=== PATIENT | female | born 1965 | race Caucasian/White ===

== ENCOUNTER 2021-07-21 05:34 | Outpatient (CLI) | payer OTHER ==
[~2021-07-21] VITALS: Ht 147.3 cm; Wt 117.0 kg
[2021-07-24] MEDS ORDERED: MELO15TA14 PO (08:57)
[2021-07-24] MEDS ORDERED: LEVO112C4 PO (08:57)
[2021-07-24] MEDS ORDERED: NALT1TAB PO (08:57)
[2021-07-24] MEDS ORDERED: MULT-1136 PO (08:57)
[2021-07-24] MEDS ORDERED: HYDR25TA4 PO (08:57)
== END 2021-07-24 09:09 | disposition home or self-care (01) ==
LOC: PREOP 05:34
PROVIDERS: ATTEND Orthopaedic Surgery
DX: Z01.818 Encounter for other preprocedural examination (principal)

== ENCOUNTER 2021-07-28 06:56 | Day surgery (SDC) | payer OTHER, BC ==
--- NOTE | 2021-07-21 07:22 | HISTORY AND PHYSICAL ---
DATE OF SERVICE: ADMISSION HISTORY AND PHYSICAL This will be for outpatient surgery on 07/28/2021 for right shoulder arthroscopy. HISTORY: The patient is a 55-year-old right hand dominant female who injured her right shoulder at work and since then has been having pain and activity limitations. She has undergone treatment with activity modifications without relief. An MRI revealed a SLAP tear. Due to functional impairment and failure to improve with conservative measures, the patient has elected to proceed with right shoulder arthroscopy with biceps tenotomy. REVIEW OF SYSTEMS: No chest pain, no shortness of breath, no dysuria. PAST MEDICAL HISTORY: Hypothyroidism, rheumatoid arthritis, renal insufficiency. PAST SURGICAL HISTORY: Tubal ligation, ear tubes, cleft palate. FAMILY HISTORY: Significant for diabetes and heart disease. PRIMARY CARE PROVIDER: [facility]. MEDICATIONS: Contrave, steroid nasal spray, hydrochlorothiazide, Mobic and levothyroxine. ALLERGIES: No known allergies. SOCIAL HISTORY: The patient is a former smoker. Denies alcohol use. PHYSICAL EXAMINATION: GENERAL: The patient is well developed, well nourished, in no acute distress. HEENT: Normocephalic, atraumatic. Pupils are equal, round and reactive to light. Oropharynx is clear. NECK: Supple, with no lymphadenopathy. LUNGS: Clear to auscultation bilaterally. HEART: Regular rate and rhythm. ABDOMEN: Soft, nontender, nondistended. EXTREMITIES: Right shoulder demonstrates positive Neer's and positive Delgado sign. She has slight weakness with abduction and external rotation with a positive Reydon's maneuver and a positive apprehension relieved with relocation. Active forward elevation is 150 degrees, passive is 170, external rotation 70 degrees and internal rotation is to her beltline. IMPRESSION: Right shoulder SLAP tear. PLAN: Right shoulder arthroscopy with biceps tenotomy, labral debridement. The risks, benefits, options, ramifications and recovery have been discussed at length with the patient. She understands and wishes to proceed. Job ID: [id number] DocumentID: [id number] Dictated Date: 07/12/2021 11:13:35 Branch Service Leader Date: 07/12/2021 12:25:37 Dictated By: IVONE GABRIEL MD
[2021-07-28] VITALS (9 sets, daily range): BP systolic 124–160; BP diastolic 68–88
[~2021-07-28] VITALS: Ht 147 cm; Wt 117.0 kg
[~2021-07-28 06:56] MED LIST: HYDR25TA4 PO; LEVO112C4 PO; MELO15TA14 PO; MULT-1136 PO; NALT1TAB PO
[2021-07-28] MEDS ORDERED: ceFAZolin INJECTION 1,000 MG VIAL IV ONE (07:15)
[2021-07-28] MEDS ORDERED: HYDROcodone/APAP 7.5 MG/325 MG (LORTAB, LORCET PLUS) TABLET PO PRN (07:15)
--- NOTE | 2021-07-28 07:34 | Progress Note-Pre Operative ---
Pre-Operative Progress Note H&P Reviewed The H&P was reviewed, patient examined and no changes noted. Date Seen by Provider: Jul 28, 2021 Time Seen by Provider: 07:20 Date H&P Reviewed: Jul 28, 2021 Time H&P Reviewed: 07:11 Pre-Operative Diagnosis: right SLAP tear IVONE GABRIEL MD Jul 28, 2021 07:34
--- NOTE | 2021-07-28 07:35 | Progress Note-Post Operative ---
Post-Operative Progess Note Surgeon (s)/Steno Typist (s) Surgeon IVONE GABRIEL MD Steno Typist: Kennedy Hurtado Pre-Operative Diagnosis right SLAP tear Post-Operative Diagnosis right SLAP tear Procedure & Operative Findings Date of Procedure 07/28/21 Procedure Performed/Findings right shoulder arthroscopic biceps tenotomy and labral debridement Anesthesia Type GETA Estimated Blood Loss Estimated blood loss (mL): minimal Specimens/Packing Specimens Removed none Packing: none IVONE GABRIEL MD Jul 28, 2021 07:35
[2021-07-28] MEDS ORDERED: morphine PF (DURAMORPH) 10 MG/10 ML AMP ONE (07:58)
[2021-07-28] MEDS ORDERED: BUPIVACAINE 0.25% 30 ML (SENSORCAINE) VIAL ONE (07:58)
[2021-07-28] MEDS ORDERED: proPOfol 200 MG/20 ML (DIPRIVAN) VIAL IV ONE (07:59)
[2021-07-28] MEDS ORDERED: SEVOFLURANE (ULTANE) 15 ML INHAL SOLN ONE ×2 (07:59→09:11)
[2021-07-28] MEDS ORDERED: LIDOCAINE PF 2% 5 ML (XYLOCAINE) VIAL ONE (07:59)
[2021-07-28] MEDS ORDERED: ONDANSETRON 4 MG/2 ML (SDV) Z0FRAN ONE (07:59)
[2021-07-28] MEDS: LACTATED RINGERS 1,000 ML IV PRN ×2 (07:59→09:10)
[2021-07-28] MEDS ORDERED: MIDAZOLAM 2 MG/2 ML (VERSED) VIAL ONE (08:00)
[2021-07-28] MEDS ORDERED: fentaNYL INJ 100 MCG/2 ML AMP ONE (08:00)
[2021-07-28] MEDS ORDERED: ROCURONIUM 50 MG/5 ML (ZEMURON) VIAL IV ONE (09:24)
[2021-07-28] MEDS ORDERED: ONDANSETRON 4 MG/2 ML (SDV) Z0FRAN IVP PRN (09:45)
[2021-07-28] MEDS ORDERED: morphine INJ 10 MG/ML 1ML (SYR OR VIAL) IVP ONE (09:45)
[2021-07-28] MEDS ORDERED: fentaNYL INJ 100 MCG/2 ML AMP IVP ONE (09:45)
[2021-07-28] MEDS ORDERED: MEPERIDINE (DEMEROL) INJ 50 MG/ML IVP ONE (09:45)
--- NOTE | 2021-07-28 09:45 | Anesthesia-General Post-Op ---
General Patient Condition Mental Status/LOC: Same as Preop Cardiovascular: Satisfactory Nausea/Vomiting: Absent Respiratory: Satisfactory Pain: Controlled Complications: Absent Post Op Complications Complications None Follow Up Care/Instructions Patient Instructions None needed. Anesthesia/Patient Condition Patient Condition Patient is doing well, no complaints, stable vital signs, no apparent adverse anesthesia problems. No complications reported per nursing. TEMITOPE LOPEZ CRNA Jul 28, 2021 09:45
--- NOTE | 2021-07-28 14:07 | OPERATIVE REPORT ---
DATE OF SERVICE: 07/28/2021 PREOPERATIVE DIAGNOSIS: Right shoulder SLAP tear. POSTOPERATIVE DIAGNOSIS: Right shoulder SLAP tear. PROCEDURE: 1. Right shoulder arthroscopic biceps tenotomy. 2. Right shoulder arthroscopic labral debridement. SURGEON: Dago Gabriel MD VICE PRESIDENT OF FINANCE: Kennedy Hurtado, who assisted throughout the procedure and closed the incisions. ANESTHESIA: General endotracheal by Kennedy Sanabria CRNA. ESTIMATED BLOOD LOSS: Minimal. DRAINS: None. COMPLICATIONS: None. POSTOPERATIVE PLAN: Sling for comfort with progressive range of motion as symptoms allow. The patient was transferred to the recovery room awake and stable condition. STATEMENT OF MEDICAL NECESSITY: The patient is a 55-year-old female who injured her right shoulder at work. She felt and heard a pop. Since then, has had persistent pain and crepitus with glenohumeral rotation. Positive Durkee's maneuver. An MRI revealed a SLAP tear and due to functional impairment and failure to improve with conservative measures, the patient elected to proceed with surgical intervention. Examination under anesthesia revealed forward elevation of 160 degrees, external rotation of 85 degrees and internal rotation of 75 degrees. Arthroscopic findings demonstrated undersurface fraying of the supraspinatus with no detachment of the rotator cuff throughout. There was a type 2 SLAP tear with a flap tear of the anterior and posterior labrum from the 10 to 2 o'clock positions. The remaining labrum was intact. The glenoid and humeral head demonstrated no significant chondral abnormalities. DESCRIPTION OF PROCEDURE: After risks and benefits of procedure were discussed and questions were answered, an informed consent was signed and placed on chart. The operative site was confirmed in the preoperative holding area initialed by the surgeon. The patient was then transferred to the operating room and after adequate levels of general endotracheal anesthetic were obtained, a timeout was called, confirming the operative site. Examination under anesthesia was performed with above findings noted. The right shoulder and upper extremity were prepped and draped in the usual sterile fashion. Shoulder joint was injected with 20 mL of fluid and a standard posterior portal was placed under direct visualization. Anterior portal was created in interval between biceps, subscapularis and glenoid. The biceps anchor was released, and stump was debrided with a shaver. The anterior and posterior labral flaps were debrided with a shaver as well. The shoulder joint was copiously irrigated. The port sites were closed with 4-0 nylon in simple interrupted fashion. Shoulder was injected with Duramorph. Port sites were infiltrated with plain Marcaine. A soft dressing and sling were applied. The patient was transferred to recovery room awake and in stable condition. Job ID: [id number] DocumentID: [id number] Dictated Date: 07/28/2021 09:43:53 Cashier Or Checker Stock Clerk Date: 07/28/2021 14:06:51 Dictated By: DAGO GABRIEL MD
== END 2021-07-28 11:40 | disposition home or self-care (01) ==
LOC: SDC 06:56
PROVIDERS: ATTEND Orthopaedic Surgery
DX: S43.431A Superior glenoid labrum lesion of right shoulder, initial encounter (principal); I10 Essential (primary) hypertension; G47.33 Obstructive sleep apnea (adult) (pediatric); E66.01 Morbid (severe) obesity due to excess calories; E03.9 Hypothyroidism, unspecified; M06.9 Rheumatoid arthritis, unspecified; N28.9 Disorder of kidney and ureter, unspecified; Z79.890 Hormone replacement therapy; Z79.1 Long term (current) use of non-steroidal anti-inflammatories (NSAID); Z79.899 Other long term (current) drug therapy; Z68.43 Body mass index [BMI] 50.0-59.9, adult
CPT/HCPCS: 87081

== ENCOUNTER → 2021-08-23 | Outpatient (RCR) | payer OTHER | END | disposition home or self-care (01) | PROVIDERS: ATTEND Orthopaedic Surgery | DX: S43.431D Superior glenoid labrum lesion of right shoulder, subsequent encounter (principal); I10 Essential (primary) hypertension; Z98.890 Other specified postprocedural states; X58.XXXD Exposure to other specified factors, subsequent encounter ==

== ENCOUNTER 2021-09-02 10:38 | Outpatient (RCR) | payer OTHER | END 2021-09-02 12:15 | disposition home or self-care (01) | PROVIDERS: ATTEND Orthopaedic Surgery | DX: S43.431D Superior glenoid labrum lesion of right shoulder, subsequent encounter (principal); I10 Essential (primary) hypertension; X58.XXXD Exposure to other specified factors, subsequent encounter; Z98.890 Other specified postprocedural states ==

== ENCOUNTER 2022-06-03 16:51 | Emergency (ER) | payer BC ==
[~2022-06-03] VITALS: Ht 147 cm; Wt 104.0 kg
[2022-06-03] MEDS ORDERED: ONDANSETRON 4 MG (ZOFRAN) ORAL DISSOLVE TAB PO STA (17:05)
--- NOTE | 2022-06-03 17:06 | ED General ---
General Chief Complaint: Cough/Cold/Flu Symptoms Stated Complaint: FLU SYMPTOMS Source of Information: Patient Exam Limitations: No Limitations History of Present Illness Date Seen by Provider: Jun 03, 2022 Time Seen by Provider: 17:00 Initial Comments 56-year-old female presents to the emergency department today for body aches, chills, sore throat and bilateral ear fullness, cough and shortness of breath. She was seen at an outlying clinic and started on amoxicillin for bilateral ear infection. She is taken a couple doses of this. She feels as though she may be getting dehydrated and she is nauseous without any vomiting. She has a minimally productive cough. Allergies and Home Medications Allergies Coded Allergies: No Known Drug Allergies (Unverified , 07/24/21) Patient Home Medication List Home Medication List Reviewed: Yes Hydrochlorothiazide (Hydrochlorothiazide) 25 Mg Tablet, 25 MG PO DAILY, (Reported) Entered as Reported by: SHANTAL VEGA on 07/24/21 0857 Levothyroxine Sodium (Levothyroxine) 112 Mcg Capsule, 112 MCG PO DAILY, (Reported) Entered as Reported by: SHANTAL VEGA on 07/24/21 0857 Meloxicam (Mobic) 15 Mg Tablet, 15 MG PO DAILY, (Reported) Entered as Reported by: SHANTAL VEGA on 07/24/21 0857 Multivitamin (Multivitamin) 1 Each Tablet, 1 EACH PO DAILY, (Reported) Entered as Reported by: SHANTAL VEGA on 07/24/21 0857 Naltrexone HCl/Bupropion HCl (Contrave ER 8-90 mg Tablet) 1 Each Tablet.er, 1 EACH PO, (Reported) Entered as Reported by: SHANTAL VEGA on 07/24/21 0857 Review of Systems Review of Systems Constitutional: chills, fever, weakness EENTM: ear pain, nose congestion, throat pain Respiratory: cough, short of breath Cardiovascular: no symptoms reported Gastrointestinal: nausea Genitourinary: no symptoms reported Musculoskeletal: no symptoms reported Skin: no symptoms reported Psychiatric/Neurological: No Symptoms Reported Hematologic/Lymphatic: No Symptoms Reported Immunological/Allergic: no symptoms reported Past Lcgzlbx-Bfrcnt-Etjteq Hx Patient Social History Tobacco Use?: No Use of E-Cig and/or Vaping dev: No Substance use?: No Alcohol Use?: No Immunizations Up To Date First/Initial COVID19 Vaccinat: 2020 Second COVID19 Vaccination Shiv: 2020 Third COVID19 Vaccination Date: 2020 Seasonal Allergies Seasonal Allergies: Yes Past Medical History Surgeries: Yes (TUBAL, EAR TUBES, CLEFT PALATE) Tubal Ligation Respiratory: No Currently Using CPAP: No Currently Using BIPAP: No Cardiac: No Neurological: No Genitourinary: Yes (RENAL INSUFFICIENCY) Gastrointestinal: No Musculoskeletal: Yes Arthritis Endocrine: Yes Hypothyroidsim HEENT: No Cancer: No Psychosocial: No Integumentary: No Family Medical History Reviewed Nursing Family Hx No Pertinent Family Hx Physical Exam Vital Signs Vital Signs - First Documented 06/03/22 17:00 O2 Delivery Room Air Capillary Refill : Height, Weight, BMI Height: '" Weight: lbs. oz. kg; 54.14 BMI Method: General Appearance: No Apparent Distress, WD/WN HEENT: PERRL/EOMI, TMs Normal, Pharyngeal Erythema Neck: Normal Inspection, Non Tender, Supple Respiratory: Chest Non Tender, No Accessory Muscle Use, No Respiratory Distress, Wheezing (Scant inspiratory wheezing bilaterally) Cardiovascular: Regular Rate, Rhythm, No Edema, No Murmur, Normal Peripheral Pulses Gastrointestinal: Normal Bowel Sounds, No Organomegaly, No Pulsatile Mass, Non Tender, Soft Extremity: Normal Capillary Refill, Normal Inspection, Normal Range of Motion, Non Tender, No Calf Tenderness Neurologic/Psychiatric: Alert, Oriented x3, Normal Mood/Affect Skin: Normal Color, Warm/Dry Lymphatic: No Adenopathy Progress/Results/Core Measures Suspected Sepsis SIRS Temperature: Pulse: Respiratory Rate: Blood Pressure / Mean: Results/Orders My Orders Orders - OLGA JOSEPH DO Ondansetron Oral Dissolve Tab (Zofran (06/03/22 17:05) Prednisone Tablet (Deltasone Tablet) (06/03/22 17:15) Vital Signs/I&O 06/03/22 17:00 O2 Delivery Room Air Capillary Refill : Departure Communication (Admissions) Patient is hemodynamically stable, nontoxic with normal vital signs. Slight wheezing so given a breathing treatment here in the emergency department. Also given p.o. steroids and Zofran. She has no focal adventitial lung sounds to make me think that she has bacterial source of pneumonia or infection however she is already on amoxicillin and this would likely cover any source anyway so we will do any chest imaging at this time. I believe this is likely influenza as it is rampant right now. Discussed testing versus not. She declines at this time. I did discuss the use of Tamiflu and how I feel it is not very effective and will help with her symptoms. I also she declines this treatment at this time. She will be discharged home in stable condition with supportive care. Impression Primary Impression: Upper respiratory infection Qualified Codes: J06.9 - Acute upper respiratory infection, unspecified Disposition: HOME, SELF-CARE Condition: Stable Departure-Patient Inst. Referrals: MEERA RASHEED (PCP) Primary Care Physician Patient Instructions: Flu, Adult (DC) Add. Discharge Instructions: Increase your fluids at home, rest. Use the steroid medicine daily until its gone. Continue your amoxicillin as previously prescribed. Use the nausea medicine by dissolving under your tongue as needed. Return to the emergency department for any severe concerns. Follow-up with your primary doctor for any nonemergent needs All discharge instructions reviewed with patient and/or family. Voiced understanding. Scripts Prednisone (Prednisone) 50 Mg Tab 50 MG PO DAILY for 5 Days, #5 TAB Prov: OLGA JOSEPH DO 06/03/22 Ondansetron (Ondansetron Odt) 8 Mg Tab.rapdis 8 MG SL Q6H PRN for NAUSEA/VOMITING for 5 Days, #20 TAB Prov: OLGA JOSEPH DO 06/03/22 OLGA JOSEPH DO Jun 03, 2022 17:06
[2022-06-03] MEDS ORDERED: PRD50T PO (17:10)
[2022-06-03] MEDS ORDERED: ONDA8TAB13 SL (17:10)
[2022-06-03] MEDS ORDERED: RT-ALBUTEROL/IPRATROPIUM 3 ML (DUONEB) VIAL INH ONE (17:15)
[2022-06-03] MEDS ORDERED: predniSONE 20 MG TAB PO ONE (17:15)
[2022-06-03 17:31] VITALS: BP 128/90
== END 2022-06-03 17:31 | disposition home or self-care (01) ==
LOC: EDUNIT# 16:51 → ER 16:53
DX: J06.9 Acute upper respiratory infection, unspecified (principal); H66.93 Otitis media, unspecified, bilateral; Z28.311 Partially vaccinated for COVID-19
CPT/HCPCS: 99283

== ENCOUNTER → 2022-07-15 | Outpatient (CLI) | payer BC ==
[~2022-07-15] MED LIST changes: +CATHETER FLUSH 10 ML SYR IVP PRN; +ONDA8TAB13 SL; +PRD50T PO
--- NOTE | 2022-07-15 13:10 | Diagnostic Imaging Report ---
INDICATION: Abnormal laboratory studies and abnormal abdominal ultrasound. The patient was administered 5.2 mCi technetium 99m Choletec intravenously and imaging over the abdomen was performed. At 45 minutes, the patient ingested 8 ounces of Ensure and the gallbladder ejection fraction was calculated. There is homogeneous uptake of activity by the liver with prompt excretion of activity into the gallbladder and common duct. There is normal passage of activity into the small bowel. Gallbladder ejection fraction is normal at 39%. IMPRESSION: Normal HIDA scan and gallbladder ejection fraction. Dictated by: Dictated on workstation # [id number]
== END ==
LOC: CARD 09:44
PROVIDERS: ATTEND Nurse Practitioner
DX: R89.9 Unspecified abnormal finding in specimens from other organs, systems and tissues (principal); R93.5 Abnormal findings on diagnostic imaging of other abdominal regions, including retroperitoneum
CPT/HCPCS: 78227; A9537